=== PATIENT | male | born 1955 | race Caucasian/White ===

== ENCOUNTER 2020-09-24 19:05 | Emergency (ER) | payer MEDICARE, OTHER ==
[~2020-09-24 19:05] MED LIST: AFRIN15 M1; ALPRAZOLAM0.5 MG PO; ASPIR 8181 MG PO; AUGMENTIN 875-1 EACH PO; CARDIZEM 30MG T30 MG PO; CIALIS20 MG PO; ELIQUIS5 MG PO; ENDOCET 10-3251 EACH PO; FENOFIBRATE145 MG PO; LASIX 40 MG TAB40 MG PO; LASIX40 MG PO; LOVAZA1 GM PO; MEDROL4 MG PO; NEURONTIN800 MG PO; OMEPRAZOLE20 M1 PO; OXYCODONE HCL15 MG PO; OXYMORPHONE HCL15 MG PO; PERCOCET 10-321 EACH PO; PRAVASTATIN SOD10 MG PO; PRILOSEC OTC20 MG PO; PROVENTIL HFA6.7 GM INH; TEGRETOL200 MG PO; VENTOLIN/PROVE0.5 ML INH; VISTARIL25 MG PO; VITAMIN D1000 UNI1 PO; XARELTO10 MG PO; ZOFRAN4 MG PO
[2020-09-24 21:07] LABS: RED BLOOD COUNT 3.02 M/UL (4.20-5.50); WHITE BLOOD COUNT 6.8 K/UL (4.5-11.0)
[2020-09-25] MEDS ORDERED: AUGMENTIN 875-1 EACH PO (01:57)
== END 2020-09-25 02:05 | disposition home or self-care (01) ==
LOC: ER1 19:05
PROVIDERS: Family Medicine
DX: R10.31 Right lower quadrant pain (principal); R10.11 Right upper quadrant pain; R50.9 Fever, unspecified; K21.9 Gastro-esophageal reflux disease without esophagitis; E11.9 Type 2 diabetes mellitus without complications; I10 Essential (primary) hypertension; E78.5 Hyperlipidemia, unspecified; J44.9 Chronic obstructive pulmonary disease, unspecified; Z87.442 Personal history of urinary calculi; Z90.49 Acquired absence of other specified parts of digestive tract; Z90.89 Acquired absence of other organs; Z79.899 Other long term (current) drug therapy; Z88.8 Allergy status to other drugs, medicaments and biological substances; Z87.891 Personal history of nicotine dependence
CPT/HCPCS: 71045; 80053; 81001; 82550; 82553; 83605; 83690; 83874; 84484; 85025; 87040; 87086; 96374; 96375; 99284; J2270; J2405; J7030; Q9967

== ENCOUNTER 2021-01-28 08:10 | Emergency (ER) | payer MEDICARE, OTHER ==
[2021-01-28 08:47] LABS: HEMOGLOBIN 11.4 gm/dl (14.0-17.5); RED BLOOD COUNT 3.39 M/UL (4.20-5.50); WHITE BLOOD COUNT 2.7 K/UL (4.5-11.0)
== END 2021-01-28 12:58 | disposition home or self-care (01) ==
LOC: ER1 08:10
PROVIDERS: Emergency Medicine
DX: R07.89 Other chest pain (principal); D61.818 Other pancytopenia; I25.10 Atherosclerotic heart disease of native coronary artery without angina pectoris; I10 Essential (primary) hypertension; E78.5 Hyperlipidemia, unspecified; E11.9 Type 2 diabetes mellitus without complications; J44.9 Chronic obstructive pulmonary disease, unspecified; Z88.8 Allergy status to other drugs, medicaments and biological substances; Z20.822 Contact with and (suspected) exposure to COVID-19
CPT/HCPCS: 71045; 80053; 82550; 82553; 83874; 83880; 84484; 85025; 85610; 85730; 93005; 99285; U0002

== ENCOUNTER → 2021-03-19 | Outpatient (CLI) | payer MEDICARE, OTHER | LOC: EXRD 13:00 | DX: R59.0 Localized enlarged lymph nodes (principal) | CPT/HCPCS: 76882 ==

== ENCOUNTER 2021-08-15 11:37 | Emergency (ER) | payer OTHER, MEDICAID | END 2021-08-15 15:00 | disposition home or self-care (01) | LOC: ER1 11:37 | DX: S01.511A Laceration without foreign body of lip, initial encounter (principal); M79.645 Pain in left finger(s); J44.9 Chronic obstructive pulmonary disease, unspecified; I10 Essential (primary) hypertension; Z88.5 Allergy status to narcotic agent; V47.5XXA Car driver injured in collision with fixed or stationary object in traffic accident, initial encounter | CPT/HCPCS: 70450; 72125; 73130; 99284 ==

== ENCOUNTER → 2021-09-10 | Outpatient (CLI) | payer OTHER | LOC: SLEEP 10:06 | DX: G47.33 Obstructive sleep apnea (adult) (pediatric) (principal) | CPT/HCPCS: 95811 ==